=== PATIENT | male | born 1995 | race Caucasian/White ===

== ENCOUNTER 2018-09-19 14:45 | Emergency (ER) | payer OTHER ==
[~2018-09-19] VITALS: Ht 198.1 cm; Wt 97.5 kg
[2018-09-19] MEDS ORDERED: NORCO 5-325 TA1 EACH PO (16:18)
[2018-09-19] MEDS ORDERED: IBUPROFEN 600600 M1 PO (16:18)
[2018-09-19 17:02] VITALS: BP 135/81
== END 2018-09-19 17:22 | disposition home or self-care (01) ==
LOC: ER 14:45
DX: S82.891A Other fracture of right lower leg, initial encounter for closed fracture (principal); F90.9 Attention-deficit hyperactivity disorder, unspecified type; F32.9 Major depressive disorder, single episode, unspecified; W18.39XA Other fall on same level, initial encounter; Y93.89 Activity, other specified; Y92.89 Other specified places as the place of occurrence of the external cause; Y99.8 Other external cause status